=== PATIENT | female | born 1955 | race Two or more races ===

== ENCOUNTER 2016-06-11 08:47 | Emergency (ER) | payer OTHER ==
[~2016-06-11] VITALS: Ht 160 cm; Wt 65.8 kg
[~2016-06-11 08:47] MED LIST: ASPIRIN500 MG ORAL; IBUPROFEN600 MG ORAL; htn med
[2016-06-11] MEDS ORDERED: NKM (09:00)
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
[2016-06-11] MEDS ORDERED: TRAMADOL HCL50 MG ORAL (09:19)
[2016-06-11] MEDS ORDERED: IBUPROFEN600 MG ORAL (09:19)
[2016-06-11 09:28] VITALS: BP 172/94
[2016-06-11 09:46] VITALS: BP 168/95
== END 2016-06-11 09:50 | disposition home or self-care (01) ==
LOC: EMR 09:40
DX: S09.90XA Unspecified injury of head, initial encounter (principal); I10 Essential (primary) hypertension; Z87.891 Personal history of nicotine dependence; W20.8XXA Other cause of strike by thrown, projected or falling object, initial encounter; Y92.121 Bathroom in nursing home as the place of occurrence of the external cause; Y99.0 Civilian activity done for income or pay
CPT/HCPCS: 99284

== ENCOUNTER 2018-03-09 07:01 | Emergency (ER) | payer OTHER ==
[~2018-03-09] VITALS: Ht 160 cm; Wt 70.3 kg
[~2018-03-09 07:01] MED LIST changes: +NKM; +TRAMADOL HCL50 MG ORAL
[2018-03-09 07:34] VITALS: BP 176/94
--- NOTE | 2018-03-09 07:40 | Emergency Room Report ---
History of Present Illness General Chief Complaint: Multiple Trauma/Fall Source: Patient Present Illness HPI Patient presents with reports of a fall this morning approximately 5:00 in the morning Patient reports that the floor was wet and she slipped on the floor falling backwards Hitting the back of her head on a bed Also complains of pain to the left upper arm and the left lower leg Denies any lapse of consciousness denies any chest pain or shortness of breath Pain is also in the mid and upper back area as well Pain is worse with movement and ambulation Denies any focal weakness Allergies: Coded Allergies: No Known Allergies (Unverified , 09/18/15) Patient History Past Medical History: see triage record Pertinent Family History: none Last Menstrual Period: pt stated when she was 49YO Now: No Reviewed Nursing Documentation: PMH: Agreed; PSxH: Agreed Nursing Documentation-PMH Hx Cardiac Problems: No Hx Hypertension: Yes Hx Pacemaker: No Hx Asthma: No Hx COPD: No Hx Diabetes: No Hx Cancer: No Hx Gastrointestinal Problems: No Hx Dialysis: No History Of Psychiatric Problem: No Hx Neurological Problems: No Hx Cerebrovascular Accident: No Hx Seizures: No Review of Systems All Other Systems: negative except mentioned in HPI Physical Exam Vital Signs Date Time Temp Pulse Resp B/P (MAP) Pulse Ox O2 Delivery O2 Flow Rate FiO2 03/09/18 07:13 98.1 84 18 176/94 98 Room Air Sp02 EP Interpretation: reviewed, normal General Appearance: well appearing Head: normocephalic, atraumatic - No palpable hematomas Eyes: bilateral eye PERRL, bilateral eye EOMI ENT: hearing grossly normal, normal pharynx Neck: full range of motion, supple, other - Some paracervical discomfort however C3, C4 no midline step-off Respiratory: chest non-tender, lungs clear Cardiovascular #1: regular rate, rhythm Gastrointestinal: non tender, soft Musculoskeletal: other - Subjective discomfort left upper trapezius, anterior left quadrant, anterior tibial, some parathoracic discomfort mid thoracic region approximately T5-T6, no midline step-off Neurologic: alert, oriented x3, responsive Skin: normal color, no rash, warm/dry Lymphatic: no adenopathy Medical Decision Making Diagnostic Impression: Primary Impression: Neck muscle strain Additional Impressions: Muscle strain, shoulder region Head injury ER Course Patient appears to have sustained soft tissue injuries after the fall CT head is not indicated emergently Neurologically patient is intact no palpable hematomas Patient moving extremities appropriately, there is subjective pain in line with likely contusion/sprain Patient will have prescription for pain medication and close outpatient follow- up Last Vital Signs Date Time Temp Pulse Resp B/P (MAP) Pulse Ox O2 Delivery O2 Flow Rate FiO2 03/09/18 07:34 98.1 83 18 176/94 98 Room Air Status: unchanged Disposition: HOME, SELF-CARE Condition: Stable Referrals: NOT CHOSEN IPA/MD,REFERRING (PCP) Additional Instructions: Patient is provided with the discharge instructions notified to follow up with primary doctor in the next 2-3 days otherwise return to the er with any worsening symptoms. Please note that this report is being documented using [employer] technology. This can lead to erroneous entry secondary to incorrect interpretation by the dictating instrument. Megan Whitten DO Mar 09, 2018 07:40
[2018-03-09] MEDS ORDERED: ROBAXIN-750750 MG PO (07:41)
[2018-03-09] MEDS ORDERED: IBUPROFEN600 MG ORAL (07:41)
[2018-03-09 07:58] VITALS: BP 176/94
== END 2018-03-09 07:59 | disposition home or self-care (01) ==
LOC: EMR 07:32
DX: S09.90XA Unspecified injury of head, initial encounter (principal); S16.1XXA Strain of muscle, fascia and tendon at neck level, initial encounter; S46.912A Strain of unspecified muscle, fascia and tendon at shoulder and upper arm level, left arm, initial encounter; W01.0XXA Fall on same level from slipping, tripping and stumbling without subsequent striking against object, initial encounter; Y92.9 Unspecified place or not applicable; I10 Essential (primary) hypertension
CPT/HCPCS: 99283